=== PATIENT | female | born 1985 | race Caucasian/White ===

== ENCOUNTER 2017-09-01 18:13 | Emergency (ER) | payer OTHER ==
[~2017-09-01] VITALS: Ht 162.6 cm; Wt 83.9 kg
[2017-09-01] MEDS ORDERED: 0.9 % SODIUM CHLORIDE 10 ML DISP.SYRIN. IV PRN (18:45)
--- NOTE | 2017-09-01 18:52 | PHYS DOC ---
Past History Additional Past Medical Histor: cervical cancer, left nephrostomy Adult General Chief Complaint Chief Complaint: URINE CATHETER PROBLEM HPI HPI 32-year-old female patient states she had left nephrostomy since July 29 at [facility] and plans to have a constant section surgery at the end of this month with her neurologist at [facility]. Patient complaining of his of urine output for the last 2 days and states she had only 400 mL urine output from her nephrostomy. Patient states he had normal urine output with her urination. Patient complaining of mild headache and pressure feeling in her left flank and concern for kinking of her nephrostomy. Patient denies dysuria, hematuria, urinary frequency, nausea, vomiting, fever and chills, abdominal pain, constipation and diarrhea, weakness. Patient states she called her urologist yesterday without any response. Patient states she increase her fluid intake and at arrival to ER she had 100 mL output in her nephrostomy bag for the last 2 hours. Review of Systems Review of Systems Constitutional: Denies fever or chills [] Eyes: Denies change in visual acuity, redness, or eye pain [] HENT: Denies nasal congestion or sore throat [] Respiratory: Denies cough or shortness of breath [] Cardiovascular: No additional information not addressed in HPI [] GI: Denies abdominal pain, nausea, vomiting, bloody stools or diarrhea [] : Denies dysuria or hematuria [, reports left flank pain] Musculoskeletal: Denies back pain or joint pain [] Integument: Denies rash or skin lesions [] Neurologic: Denies focal weakness or sensory changes, reports headache [] Endocrine: Denies polyuria or polydipsia [] All other systems were reviewed and found to be within normal limits, except as documented in this note. Current Medications Current Medications Current Medications Medications (Trade) Dose Ordered Sig/Santy Start Time Stop Time Status Last Admin Dose Admin Sodium Chloride (Normal Saline Flush) 10 ml QSHIFT PRN 09/01/17 18:45 UNV Allergies Allergies Allergies Coded Allergies Type Severity Reaction Last Updated Verified interferon beta-1a Allergy Unknown 09/01/17 Yes morphine Allergy Unknown 09/01/17 Yes Physical Exam Physical Exam Constitutional: Well developed, well nourished, no acute distress, non-toxic appearance, anxious. [] HENT: Normocephalic, atraumatic, bilateral external ears normal, oropharynx moist, no oral exudates, nose normal. [] Eyes: PERRLA, EOMI, conjunctiva normal, no discharge. [] Neck: Normal range of motion, no tenderness, supple, no stridor. [] Cardiovascular:Heart rate regular rhythm, no murmur [] Lungs & Thorax: Bilateral breath sounds clear to auscultation [] Abdomen: Bowel sounds normal, soft, no tenderness, no masses, no pulsatile masses. [] Skin: Warm, dry, no erythema, no rash. [] Back: No tenderness, no CVA tenderness, left nephrostomy in place with clear urine in the bag. [] Extremities: No tenderness, no cyanosis, no clubbing, ROM intact, no edema. [] Neurologic: Alert and oriented X 3, normal motor function, normal sensory function, no focal deficits noted. [] Psychologic: Affect normal, judgement normal, mood normal. [] EKG EKG [] Radiology/Procedures Radiology/Procedures [] Course & Med Decision Making Course & Med Decision Making Pertinent Labs and Imaging studies reviewed. (See chart for details) Evaluation of patient in ER showed 32-year-old female patient with left nephrostomy placement in July complaining of decrease of urine output from her nephrostomy since yesterday. Patient had unremarkable physical exam and labs and CT of abdomen and pelvis except for right sided hydronephrosis. Patient had good urine output and UA from her nephrostomy with UTI from her voiding urine. Patient instructed to increase fluid intake and follow up with her urology physician in one or 2 days. Plan discharge patient home with diagnosis of UTI and prescription of Cipro. Dragon Disclaimer Dragon Disclaimer This electronic medical record was generated, in whole or in part, using a voice recognition dictation system. Departure Departure: Impression: Primary Impression: Urinary tract infection Additional Impressions: Nephrostomy complication Hydronephrosis, right Disposition: HOME, SELF-CARE (At 2020) Condition: IMPROVED Referrals: YSABEL FARRELL DO, [facility] (PCP) Patient Instructions: Nephrostomy, Care After, Urinary Tract Infection Additional Instructions: Follow-up with your urologist [facility] in one or 2 days Increase fluid intake Return to ER if not getting better Scripts Ciprofloxacin Hcl (CIPRO) 250 Mg Tablet 1 TAB PO BID, #6 TAB Prov: MANDEEP OSCAR MD 09/01/17 Problem Qualifiers MANDEEP OSCAR MD Sep 01, 2017 18:52
[2017-09-01 19:00] VITALS: BP 118/67
[2017-09-01] MEDS ORDERED: IV NORMAL SALINE 1,000ML 1,000 ML IV SCH (19:00)
[2017-09-01] MEDS ORDERED: IOHEXOL 300 MG/ML 75 ML VIAL. IV ONE (19:15)
[2017-09-01 19:26] LABS: BASO % 1 % (0-3); EOS # 0.1 x10^3/uL (0.0-0.7); EOS % 2 % (0-3); HEMATOCRIT 42.3 % (36.0-47.0); HEMOGLOBIN 13.9 g/dL (12.0-15.5); LYMPH # 1.8 x10^3/uL (1.0-4.8); LYMPH % 34 % (24-48); MEAN CORPUSCULAR HEMOGLOBIN 28 pg (25-35); MEAN CORPUSCULAR HGB CONC 33 g/dL (31-37); MEAN CORPUSCULAR VOLUME 85 fL (79-100); MONO # 0.3 x10^3/uL (0.0-1.1); MONO % 6 % (0-9); NEUT # 2.9 x10^3uL (1.8-7.7); NEUT % 57 % (31-73); PLATELET COUNT 214 x10^3/uL (140-400); RED BLOOD COUNT 4.96 x10^6/uL (3.50-5.40); RED CELL DISTRIBUTION WIDTH 13.8 % (11.5-14.5); WHITE BLOOD COUNT 5.2 x10^3/uL (4.0-11.0)
[2017-09-01 19:31] LABS: ALBUMIN 4.3 g/dL (3.4-5.0); ALBUMIN/GLOBULIN RATIO 1.2 (1.0-1.7); CALCIUM 9.1 mg/dL (8.5-10.1); CREATININE 0.9 mg/dL (0.6-1.0); GFR 72.1; POTASSIUM 3.6 mmol/L (3.5-5.1); TOTAL BILIRUBIN 0.3 mg/dL (0.2-1.0); TOTAL PROTEIN 7.9 g/dL (6.4-8.2)
[2017-09-01 19:44] LABS: BILIRUBIN,URINE NEG (NEG); CLARITY,URINE CLEAR; COLOR,URINE STRAW; GLUCOSE,URINE NEG (NEG)
[2017-09-01 19:45] LABS: BACTERIA,URINE FEW /HPF (0-FEW); NITRITE,URINE NEG (NEG); RBC,URINE 0 /HPF (0-2); SQUAMOUS EPITHELIAL CELL,UR OCC /LPF; UROBILINOGEN,URINE 0.2 mg/dL (0.2 mg/dL)
[2017-09-01 19:46] LABS: BILIRUBIN,URINE NEG (NEG); CLARITY,URINE CLEAR; COLOR,URINE STRAW; GLUCOSE,URINE NEG (NEG); NITRITE,URINE NEG (NEG); UROBILINOGEN,URINE 0.2 mg/dL (0.2 mg/dL)
[2017-09-01 19:47] LABS: BACTERIA,URINE FEW /HPF (0-FEW)
--- NOTE | 2017-09-01 20:01 | RAD ---
CT SCAN OF THE ABDOMEN AND PELVIS WITH IV CONTRAST. History: Left nephrostomy Comparison: None. Procedure: Contiguous axial images of the abdomen and pelvis were performed after the administration of 75 cc of Omni 300 IV contrast and without oral contrast. Delayed images were obtained as well CT Abdomen with contrast: Findings: Liver: Unremarkable Spleen: Unremarkable Pancreas: Unremarkable Adrenal Glands: Unremarkable Kidneys: There is a nephrostomy tube on the left. There is moderate right hydroureter and right hydronephrosis. There is no mass or lymphadenopathy. There is no free air. There is no free fluid. CT Pelvis with Contrast: Findings: The urinary bladder is mostly collapsed. There is apparent mild wall thickening. There is mild soft tissue density seen posteriorly in the low pelvis anterior to the sacrum and coccyx. There is soft tissue density around the vaginal cuff. The uterus and ovaries are not seen. The appendix is not well identified. Multiple surgical clips in the pelvis. There is no free fluid. There is no lymphadenopathy. Impression: 1. Moderate right hydronephrosis and right hydroureter. An obstructing stone is not seen. There is soft tissue density anterior to the sacrum and coccyx which could be treatment changes and retroperitoneal fibrosis is possible. 2. Mild wall thickening of the urinary bladder could be nondistention. 3. There is a percutaneous nephrostomy on the left. The left-sided collecting system is decompressed. PQRS Compliance Statement: One or more of the following individualized dose reduction techniques were utilized for this examination: 1. Automated exposure control 2. Adjustment of the mA and/or kV according to patient size 3. Use of iterative reconstruction technique Electronically signed by: Vega Hopkins III, MD (09/01/2017 7:58 PM) [facility]
[2017-09-01] MEDS ORDERED: CIPR250T30 PO (20:22)
[2017-09-02 01:36] LABS: HEMOGLOBIN ISTAT 13.6 gm/dL; POTASSIUM ISTAT 3.7 mmol/L (3.5-5.0)
== END 2017-09-01 20:45 | disposition home or self-care (01) ==
LOC: ER 18:13
DX: N99.528 Other complication of incontinent external stoma of urinary tract (principal); N39.0 Urinary tract infection, site not specified; N13.30 Unspecified hydronephrosis; R51 Headache; Z88.5 Allergy status to narcotic agent; Z88.8 Allergy status to other drugs, medicaments and biological substances
CPT/HCPCS: 36415; 74177; 80047; 80053; 81001; 85025; 87086; 96360; 96361; 99285-25; J7030